=== PATIENT | female | born 1950 | race Caucasian/White ===

== ENCOUNTER → 2017-02-06 | Outpatient (CLI) | payer MEDICARE, BC ==
[~2017-02-06] MED LIST: ALLERGY SYRING1 EAC1 SUB-Q; BENADRYL25 MG PO; BYDUREON P2 MG/0.65 SUB-Q; BYSTOLIC10 MG PO; CALCIUM500 MG PO; CARDIZEM30 MG PO; CLARITIN10 MG PO; COLACE100 MG PO; DESYREL50 MG PO; DRISDOL 5050000 UNIT PO; EFFEXOR XR 3737.5 MG PO; FORTAMET1000 MG PO; HUMULIN R100 UNIT/1 SUB-Q; IVIG IV; LANTUS (IN100 UNIT/M SUB-Q; LIORESAL10 MG PO; MAXALT MLT10 MG SL; MAXALT10 MG PO; NORCO 5-325 MG1 TAB PO; PEPCID AC10 MG PO; PROLIA60 MG/ML SUB-Q; ZOFRAN4 MG PO; ZYRTEC10 MG PO
--- NOTE | ~2017-02-06 | PUL ---
PATIENT'S NAME: KARINA CONNOR [facility] AGE: 66 Y [address] ROOM: [place] [id number] LOCATION: [facility] ADMIT DATE: 02/06/2017 Pulmonary DISCHARGE DATE: FAMILY PHYSICIAN: Mtat Jimenez MD ATTENDING PHYSICIAN: BRIGHT KHAN NAME OF PROCEDURE: Pulmonary Function Test DATE OF PROCEDURE: February 06, 2017 TECH: SANDER Sams REASON FOR EXAM: Restrictive Lung Disease RESULTS: 1. FVC was 2.03 liters which is 63% of predicted and low, FEV1 was 1.69 liters which is 69% of predicted and low, and FEV1/FVC was 82% and normal. The flow volume curve did not reveal any significant airflow limitation. After bronchodilator administration FVC increased to 2.09 liters which is a 3% increase and FEV1 increased to 1.72 liters which is a 2% increase. FEV1/FVC was 82%. 2. DLCO was 10.8 with an adjusted DLCO of 10.6 which is 43% of predicted and low. 3. Total lung capacity was 3.71 liters which is 76% of predicted of predicted and low, and residual volume was 1.68 liters which is 89% of predicted and normal. PHYSICIAN INTERPRETATION: The patient has no airflow limitation and no significant bronchodilator response. Her diffusion capacity is moderately low. She has evidence of moderate restrictive lung disease. MD NESTOR SHELTON/hudson /[id number] dtt: 02/08/17 1542 , BRIGHT KHAN dtd: 02/08/17 1159
== END | disposition disaster alternative care site (69) ==
LOC: GRTH 12:16
DX: J98.4 Other disorders of lung (principal)